=== PATIENT | female | born 1960 | race Caucasian/White ===

== ENCOUNTER 2019-06-08 18:12 | Emergency (ER) | payer BC, SELFPAY ==
[2019-06-08 18:22] VITALS: BP 117/79; PULSE 89; RESP 16; TEMP 36.4; O2SAT 98
--- NOTE | 2019-06-08 19:34 | PC.NURSE ---
pt reports lower back pain starting two days ago. She initially thought it was related to staying in bed due to head cold symptoms. Her head cold symptoms have mostly resolved but now her back is getting worse. She came in in a wheel chair and reports having difficulty walking due to pain.
[2019-06-08 19:37] VITALS: BP 125/65; PULSE 86; RESP 20; O2SAT 98
--- NOTE | 2019-06-08 19:55 | ED_ITS ---
HPI - Back Pain/Injury General Chief Complaint: Back Pain/Injury Stated Complaint: PAIN IN THE BACK TOWARDS FRONT OF STOMACH Time Seen by Provider: 06/08/19 19:55 Source: patient and family Mode of arrival: Ambulatory Limitations: no limitations History of Present Illness HPI Narrative: 59-year-old female here for evaluation approximately 24 hours of lower back pain and lower abdominal pain. She is unsure whether it is abdominal pain radiating to her back or back pain radiating to her abdomen or 2 separate symptoms. No change in stool habits no urinary symptoms. No vomiting. Does seem to be worse with movement but not with palpation. Has tried ibuprofen for symptoms at home without any improvement. Has had some chills and upper respiratory symptoms over the past couple days. Related Data Home Medications Medication Instructions Recorded Confirmed omeprazole 40 mg PO QDAY #0 10/01/11 fluoxetine 20 mg PO #0 10/04/11 losartan [Cozaar] 25 mg PO #0 10/04/11 cetirizine 10 mg PO QDAYP PRN #0 tab 05/31/16 duloxetine 20 mg PO QDAY #0 cap 05/31/16 fluticasone propionate [Flonase 1 spray INTRANASAL QDAYP PRN #0 05/31/16 Allergy Relief] Previous Rx's Medication Instructions Recorded codeine-guaifenesin 5 ml PO QHS #60 ml 06/21/17 doxycycline monohydrate 100 mg PO BID #20 cap 06/21/17 prednisone 40 mg PO QDAY #14 tab 06/21/17 codeine-guaifenesin 5 ml PO Q4HP PRN #100 ml 07/12/17 doxycycline hyclate 100 mg PO Q12H #20 cap 07/12/17 prednisone 20 mg PO Q DAY #8 tab 07/12/17 Allergies Allergy/AdvReac Type Severity Reaction Status Date / Time erythromycin base Allergy Unknown Verified 06/08/19 18:25 Penicillins Allergy Unknown Verified 06/08/19 18:25 phenobarbital Allergy Unknown Verified 06/08/19 18:25 Review of Systems Constitutional Constitutional: Reports body ache(s), Reports fatigue, Reports fever(s) and Denies headache(s) ENT Ears, Nose, Mouth, and Throat: Denies vertigo, Denies dizziness and Denies headache(s) Cardiovascular Cardiovascular: Denies chest pain and Denies dyspnea Respiratory Respiratory: Denies dyspnea Gastrointestinal Gastrointestinal: Reports abdominal pain, Denies change in stool character, Reports nausea and Denies vomiting Genitourinary Genitourinary: Denies dysuria and Denies vaginal discharge Musculoskeletal Musculoskeletal: Reports back pain Integumentary/Breasts Skin/Breast: Denies lesions and Denies rash Neurologic Neurologic: Denies behavioral changes, Denies confusion, Denies vertigo, Denies dizziness and Denies headache(s) Psychiatric Psychiatric: Denies behavioral changes and Denies confusion Endocrine Endocrine: Reports fatigue Hematologic/Lymphatic Hematologic/Lymphatic: Denies easy bleeding and Denies easy bruising [facility] Medical History Asthma (Inactive) Hypertension (Acute) Social History Smoking Status: Current every day smoker Social History Smoking Status: Current every day smoker Exam Initial Vital Signs Initial Vital Signs: Vital Signs Temperature 97.6 F 06/08/19 18:22 Pulse Rate 89 06/08/19 18:22 Respiratory Rate 16 06/08/19 18:22 Blood Pressure 117/79 06/08/19 18:22 Pulse Oximetry 98 06/08/19 18:22 Const General: cooperative, comfortable, well developed and well groomed Orientation: alert, awake and oriented x3 HENMT Head: normal to inspection and normocephalic Resp Effort & Inspection: normal respiratory effort Auscultation: clear to auscultation bilaterally Cardio Rate: regular rate Rhythm: regular rhythm GI Inspection: non-distended Palpation: soft, No firm and No tender Back/Spine/Pelvis Back: No CVA tenderness Thoracic/Lumbar Spine: No thoracic spinal tenderness and No lumbar spinal tenderness Skin Lesions: no lesions Rashes: no rashes Neuro General: alert, awake and oriented x3 Cognition: normal cognition Speech: speech normal Extrem General: normal to inspection and capillary refill normal Psych Appearance: grossly normal and well kempt Course Orders Ordered: ED Orders 06/08/19 20:12 CT abdomen pelvis w con Stat 06/08/19 20:35 Complete Blood Count AUTO DIFF Stat Comprehensive Metabolic Panel Stat Lipase Stat 06/08/19 22:48 Urine Microscopic Stat Discontinued Medications Sodium Chloride (Normal Saline 0.9%) 1,000 mls @ 1,000 mls/hr IV BOLUS ONE Stop: 06/08/19 21:10 Last Infusion: 06/08/19 22:57 Dose: 0 mls/hr Documented by: Admin: 06/08/19 20:41 Dose: 1,000 mls/hr Documented by: CIRILO Ketorolac Tromethamine (Toradol) 30 mg IV NOW ONE Stop: 06/08/19 20:12 Last Admin: 06/08/19 20:41 Dose: 30 mg Documented by: CIRILO Morphine Sulfate (Morphine) 4 mg IV NOW ONE Stop: 06/08/19 21:35 Last Admin: 06/08/19 21:50 Dose: 4 mg Documented by: CIRILO Vital Signs Vital signs: Vital Signs - 8 hr 06/08/19 18:22 06/08/19 19:37 06/08/19 20:00 Temperature 97.6 F Pulse Rate 89 86 95 H Respiratory Rate 16 20 17 Blood Pressure 117/79 Blood Pressure [Left Arm] 125/65 135/97 H Pulse Oximetry 98 98 98 06/08/19 21:33 06/08/19 23:19 Temperature Pulse Rate 88 75 Respiratory Rate 18 17 Blood Pressure Blood Pressure [Left Arm] 152/62 H 121/77 Pulse Oximetry 99 97 MDM - Back Pain/Injury Lab Data Attestation: I reviewed the patient's lab results. Result diagrams: 06/08/19 20:35 06/08/19 20:35 Labs: Lab Results 06/08/19 06/08/19 06/08/19 Range/Units 20:35 20:35 22:48 WBC 7.4 (4.5-11.0) X10^3/uL RBC 4.42 (4.0-5.2) X10^6/uL Hgb 14.0 (12.0-16.0) g/dL Hct 41.6 (36-46) % MCV 94.0 (80-100) fL MCH 31.6 (26-34) PG MCHC 33.6 (30-36) % RDW 13.4 (11.6-14.8) % Plt Count 257 (150-400) X10^3/uL Neut % (Auto) 59.7 (50-75) % Lymph % (Auto) 27.6 (25-40) % [place] % (Auto) 10.4 (3-14) % Eos % (Auto) 1.7 L (2-4) % Baso % (Auto) 0.6 (0-2) % Neut # (Auto) 4400 (6894-7383) /uL Lymph # (Auto) 2000 (2383-5804) /uL [place] # (Auto) 800 (0-900) /uL Eos # (Auto) 100 (0-450) /uL Baso # (Auto) 0 (0-100) /uL Sodium 140 (137-145) mmol/L Potassium 4.0 (3.4-5.1) mmol/L Chloride 105 (98-107) mmol/L Carbon Dioxide 30 (22-32) mmol/L BUN 14 (7-17) mg/dL Creatinine 0.60 (0.52-1.04) mg/dL Estimated GFR > 60.0 (>60) mL/min BUN/Creatinine Ratio 23.3 H (6-22) Glucose 128 H (80-110) mg/dL Calcium 9.2 (8.4-10.2) mg/dL Total Bilirubin 0.3 (0.2-1.3) mg/dL AST 95 H (14-36) IU/L ALT 106 H (9-52) IU/L Alkaline Phosphatase 130 H (38-126) U/L Total Protein 7.2 (6.3-8.2) g/dL Albumin 4.1 (3.5-5.0) g/dL Globulin 3.1 (1.7-4.1) g/dL Albumin/Globulin Ratio 1.3 (1.0-2.8) Lipase 49 (23-300) U/L Urine RBC 0-1/hpf (0-5/HPF) Urine WBC None seen (0-5/HPF) Ur Squamous Epith Cells 1-5 /hpf (0-5/HPF) Urine Bacteria Few (2-10) H (None) Ur Culture Indicated? Cult not indicated Urine Dip Bedside Urine Glucose Negative Bedside Urine Bilirubin - Negative Bedside Urine Ketone - Negative Urine Specific [place] 1.005 Bedside Urine Occult Blood - Negative Bedside Urine pH 5 Bedside Urine Protein + 30 Bedside Urine Urobilinogen +/- 1mg Bedside Urine Nitrite - Negative Bedside Urine Leukocytes +/- [address] scan - abdomen: Radiologist's impression: [address] [address] [address] Scan Report Signed Patient: Kathryn Davis BMR#: [id number] : 9Acct:[id number] Age/Sex: 59 / FDate of Service: 06/08/19 Loc: ED Accession Number: [id number] Procedure: CT abdomen pelvis w con Ordering Provider: Matheus Kilgore D.O. PROCEDURE: CT ABDOMEN PELVIS W CON INDICATIONS: Generalized abdominal pain TECHNIQUE: After the administration of intravenous contrast, 5 mm thick sections acquired from the diaphragm to the symphysis. 5 mm coronal and sagittal reformats were acquired. For radiation dose reduction, the following was used: automated exposure control, adjustment of mA and/or kV according to patient size. COMPARISON: [facility], CT, CT CHEST WO CON, 07/01/2016, 13:47. FINDINGS: Image quality: Excellent. ABDOMEN: Lung bases: There is mild scarring redemonstrated in the lung bases. Heart size is normal. There is a small hyper hernia. Solid organs: Evaluation of the liver demonstrates no focal hepatic lesions. The gallbladder appears within normal limits without calcified gallstones. Biliary system is non-dilated. Pancreas enhances normally. No peripancreatic fat stranding or fluid collections. No pancreatic duct dilatation. The spleen is normal in size. No adrenal nodules. Kidneys demonstrate no hydronephrosis. There is mild nonspecific perinephric stranding laterally. There is symmetric renal enhancement without perinephric fluid collections. Peritoneum and bowel: Bowel loops demonstrate normal wall thickness and caliber. The appendix is normal in appearance. There is colonic diverticulosis without acute diverticulitis. No free fluid or air. Nodes and vessels: No retroperitoneal or mesenteric adenopathy by size criteria. Aorta and inferior vena cava are normal in size. Miscellaneous: No ventral hernias. PELVIS: Genitourinary: Bladder wall thickness is normal. Miscellaneous: No inguinal hernias or adenopathy. Bones: No suspicious bony lesions. No vertebral body compression fractures. IMPRESSION: 1. No definite acute intra-abdominal abnormality. Specifically no evidence of appendicitis. 2. Colonic diverticulosis without acute diverticulitis. 3. Mild nonspecific perinephric stranding bilaterally without hydronephrosis. No other definite imaging evidence of pyelonephritis. Recommend correlation clinically. Dictated by: Torey Capellan M.D. on 06/08/2019 at 21:47 Approved by: Torey Capellan M.D. on 06/08/2019 at 21:52 [facility] Narrative Medical decision making narrative: Patient's CT scan shows no acute pathology. Rest of her labs also denies given exact etiology for symptoms. I do suspect that it is musculoskeletal. Did discuss this with the patient. She will continue with Tylenol and ibuprofen. No indication for antibiotics. I did discuss that she the patient her who is at bedside. She was given return precautions and follow-up instructions. She expressed understanding and agreement with plan. Discharge Plan Departure Patient Disposition: Home Clinical Impression: Lumbar back pain Abdominal pain Qualifiers: Abdominal location: lower abdomen, unspecified Qualified Code(s): R10.30 - Lower abdominal pain, unspecified Discharge Date/Time: 06/08/19 23:27 Instructions: DI for Low Back Pain, DI for Muscle Strain Activity Restrictions/Additional Instructions: Recommend that you keep hydrated. You can take Tylenol and/or ibuprofen for any body aches were discomfort. Return to the emergency department for any new or worsening symptoms Prescriptions: No Action omeprazole 40 MG capsule,delayed release(DR/EC) 40 mg PO QDAY Qty: 0 RF: 0 fluoxetine 20 MG capsule 20 mg PO Qty: 0 RF: 0 losartan [Cozaar] 25 MG tablet 25 mg PO Qty: 0 RF: 0 cetirizine 10 MG tablet 10 mg PO QDAYP PRNQty: 0 RF: 0 fluticasone propionate [Flonase Allergy Relief] 9.9 ML spray,suspension 1 spray Intranasal QDAYP PRNQty: 0 RF: 0 duloxetine 20 MG capsule,delayed release(DR/EC) 20 mg PO QDAY Qty: 0 RF: 0 prednisone 20 MG tablet 40 mg PO QDAY Qty: 14 RF: 0 doxycycline monohydrate 100 MG capsule 100 mg PO BID Qty: 20 RF: 0 codeine-guaifenesin 100 MG/10 MG liquid 5 ml PO QHS Qty: 60 RF: 0 doxycycline hyclate 100 MG capsule 100 mg PO Q12H Qty: 20 RF: 0 prednisone 20 MG tablet 20 mg PO Q DAY Qty: 8 RF: 0 codeine-guaifenesin 100 MG/10 MG liquid 5 ml PO Q4HP PRNQty: 100 RF: 0
[2019-06-08 20:00] VITALS: BP 135/97; PULSE 95; RESP 17; O2SAT 98
--- NOTE | 2019-06-08 20:12 | DI.CT.S_ITS ---
PROCEDURE: CT ABDOMEN PELVIS W CON INDICATIONS: Generalized abdominal pain TECHNIQUE: After the administration of intravenous contrast, 5 mm thick sections acquired from the diaphragm to the symphysis. 5 mm coronal and sagittal reformats were acquired. For radiation dose reduction, the following was used: automated exposure control, adjustment of mA and/or kV according to patient size. COMPARISON: [facility], CT, CT CHEST WO CON, 07/01/2016, 13:47. FINDINGS: Image quality: Excellent. ABDOMEN: Lung bases: There is mild scarring redemonstrated in the lung bases. Heart size is normal. There is a small hyper hernia. Solid organs: Evaluation of the liver demonstrates no focal hepatic lesions. The gallbladder appears within normal limits without calcified gallstones. Biliary system is non-dilated. Pancreas enhances normally. No peripancreatic fat stranding or fluid collections. No pancreatic duct dilatation. The spleen is normal in size. No adrenal nodules. Kidneys demonstrate no hydronephrosis. There is mild nonspecific perinephric stranding laterally. There is symmetric renal enhancement without perinephric fluid collections. Peritoneum and bowel: Bowel loops demonstrate normal wall thickness and caliber. The appendix is normal in appearance. There is colonic diverticulosis without acute diverticulitis. No free fluid or air. Nodes and vessels: No retroperitoneal or mesenteric adenopathy by size criteria. Aorta and inferior vena cava are normal in size. Miscellaneous: No ventral hernias. PELVIS: Genitourinary: Bladder wall thickness is normal. Miscellaneous: No inguinal hernias or adenopathy. Bones: No suspicious bony lesions. No vertebral body compression fractures. IMPRESSION: 1. No definite acute intra-abdominal abnormality. Specifically no evidence of appendicitis. 2. Colonic diverticulosis without acute diverticulitis. 3. Mild nonspecific perinephric stranding bilaterally without hydronephrosis. No other definite imaging evidence of pyelonephritis. Recommend correlation clinically. Dictated by: Torey Capellan M.D. on 06/08/2019 at 21:47 Approved by: Torey Capellan M.D. on 06/08/2019 at 21:52
[2019-06-08] MEDS: SODIUM CHLORIDE 0.9% 1,000 ML 1000 ML IV (20:41)
[2019-06-08] MEDS: KETOROLAC 60 MG/2 ML VIAL 30 MG IV (20:41)
[2019-06-08 20:46] LABS: Add Manual Diff / Slide Review NO; Basophils Absolute Auto 0 /uL (0-100); Basophils Percent Auto 0.6 % (0-2); Eosinophils Absolute Auto 100 /uL (0-450); Eosinophils Percent Auto 1.7 % (2-4); Hematocrit 41.6 % (36-46); Lymphocytes Absolute Auto 2000 /uL (1100-4500); Lymphocytes Percent Auto 27.6 % (25-40); Mean Corpuscular HGB Conc 33.6 % (30-36); Mean Corpuscular Hemoglobin 31.6 PG (26-34); Monocytes Absolute Auto 800 /uL (0-900); Monocytes Percent Auto 10.4 % (3-14); Neutrophils Absolute Auto 4400 /uL (1500-7000); Neutrophils Percent Auto 59.7 % (50-75); Platelet Count 257 X10^3/uL (150-400); Red Blood Cell Count 4.42 X10^6/uL (4.0-5.2); Red Cell Distribution Width 13.4 % (11.6-14.8); White Blood Cell Count 7.4 X10^3/uL (4.5-11.0)
[2019-06-08 20:56] LABS: Alanine Aminotransferase 106 IU/L (9-52); Albumin 4.1 g/dL (3.5-5.0); Albumin Globulin Ratio 1.3 (1.0-2.8); Alkaline Phosphatase 130 U/L (38-126); Aspartate Aminotransferase 95 IU/L (14-36); BUN Creatinine Ratio 23.3 (6-22); Bilirubin Total 0.3 mg/dL (0.2-1.3); Blood Urea Nitrogen 14 mg/dL (7-17); Calcium 9.2 mg/dL (8.4-10.2); Carbon Dioxide 30 mmol/L (22-32); Chloride 105 mmol/L (98-107); Estimated Glomerular Filt Rate > 60.0 mL/min (>60); Globulin 3.1 g/dL (1.7-4.1); Glucose 128 mg/dL (80-110); HEMOLYSIS < 15 (0-50); Lipase 49 U/L (23-300); Sodium 140 mmol/L (137-145); Total Protein 7.2 g/dL (6.3-8.2)
[2019-06-08 21:33] VITALS: BP 152/62; PULSE 88; RESP 18; O2SAT 99
[2019-06-08] MEDS: MORPHINE 4 MG/ML INJ IV (21:50)
[2019-06-08 22:49] LABS: WBC Urine None Seen (0-5/HPF)
[2019-06-08 23:00] LABS: Bacteria Urine Few (2-10); RBC Urine 0-1/HPF (0-5/HPF); Squamous Epithelial Cell Urine 1-5 /HPF (0-5/HPF)
[2019-06-08 23:01] LABS: Culture Indicated Urine Cult Not Indicated
[2019-06-08 23:19] VITALS: BP 121/77; PULSE 75; RESP 17; O2SAT 97
== END 2019-06-08 23:27 | disposition home or self-care (01) ==
PROVIDERS: Emergency Provider Emergency Medicine
DX: M54.5 Low back pain (principal); R10.30 Lower abdominal pain, unspecified
CPT/HCPCS: 36415; 74177; 80053; 81003; 81015; 83690; 85025; 96361; 96374; 96375; 99283; 99285; J1885; J2270; Q9967

== ENCOUNTER → 2021-08-24 14:28 | Outpatient (CLI) | payer BC, SELFPAY ==
[2021-08-24 16:16] LABS: COVID19 -Nasal RAPID Negative (Negative)
== END ==
PROVIDERS: Visit Provider Physician Assistant
DX: Z20.822 Contact with and (suspected) exposure to COVID-19 (principal)
CPT/HCPCS: 87635

== ENCOUNTER 2021-08-25 10:12 | Day surgery (SDC) | payer BC, SELFPAY ==
--- NOTE | 2021-08-25 | PATH_ITS ---
[facility] Accession Number: [id number] . 01 Material submitted: . PART A: gastrointestinal site - ANTRUM BIOPSY PART B: gastrointestinal site - ANTRUM BODY BIOPSY . 02 Diagnosis: A. Antrum, Biopsy: Gastric antral mucosa with mild chronic inflammation. Negative for Helicobacter organisms by immunohistochemistry. Negative for intestinal metaplasia. Negative for dysplasia or malignancy. . B. Antrum, Body, Biopsy: Portions of gastric body-type mucosa with mild chronic inflammation. Negative for Helicobacter organisms by immunohistochemistry. Negative for intestinal metaplasia. Negative for dysplasia or malignancy. MRV 09/02/2021 1452 Local . 02 Electronically signed: . Ashanti Givens MD, Pathologist NPI- [id number] . 01 Gross description: . Part A: ANTRUM BIOPSY: Received in formalin is 1 fragment(s) of yen, soft tissue measuring 0.1 x 0.1 x 0.1 cm submitted entirely in 1 cassette(s) Part B: ANTRUM BODY BIOPSY: Received in formalin are 2 fragment(s) of yen, soft tissue measuring 0.1 x 0.1 x 0.1 cm to 0.2 x 0.2 x 0.2 cm submitted entirely in 1 cassette(s) /LENORA 08/26/2021 1856 Local . 02 Microscopic: . A. An immunohistochemical stain was performed to evaluate for Helicobacter organisms and is negative for Helicobacter organisms by immunohistochemistry studies. The control stain showed appropriate reactivity. . B. An immunohistochemical stain was performed to evaluate for Helicobacter organisms and is negative for Helicobacter organisms by immunohistochemistry studies. The control stain showed appropriate reactivity. . * This test was developed and its performance characteristics determined by [facility]. It has not been cleared or approved by the U.S. Food and Drug Administration. The FDA has determined that such clearance or approval is not necessary. This test is used for clinical purposes. It should not be regarded as investigational or for research. . 02 Pathologist provided ICD-10: K29.70 . 02 CPT . 725574, 020665, [id number] Performed at: 01 [facility] [address] [id number] MD Torey James MD Phone: [phone] Performed at: 02 [facility] [id number] [place] [id number] MD Ml Morillo MD Phone: [phone]
[2021-08-25 10:35] VITALS: BP 123/81; PULSE 79; RESP 18; TEMP 36.5; O2SAT 96; BMI 35.6
[2021-08-25] MEDS: SODIUM CHLORIDE 0.9% 1,000 ML 84 ML IV (10:50)
--- NOTE | 2021-08-25 11:08 | PM.HP.1 ---
History of Present Illness History of Present Illness Date Patient Seen: 08/25/21 Time Patient Seen: 11:08 Chief complaint: EGD W/POSS BX Narrative: I reviewed Dr. Buitrago's note. No significant changes. Patient History Medical History Asthma Cervical vertebral fusion Cervical vertebral fusion Chronic pain Cyst of right breast Dermoid cyst of both ovaries GERD (gastroesophageal reflux disease) HTN (hypertension) IBS (irritable bowel syndrome) Surgical History History of tonsillectomy Family & Social History Social History: household members spouse Tobacco & Substance use: Smoking Status Current every day smoker alcohol intake current alcohol intake frequency 0-2 drinks per day Substance Use Type prescription drug Meds Home Medications and Allergies Home Medications Medication Instructions Recorded Confirmed Type albuterol sulfate 90 mcg/actuation 2 inh INHALATION PRN PRN 08/24/21 08/25/21 History aerosol inhaler cholecalciferol (vitamin D3) 50 2,000 unit PO DAILY 08/24/21 08/25/21 History mcg (2,000 unit) capsule (Vitamin D3) cyclobenzaprine 10 mg tablet 10 mg PO BEDTIME 08/24/21 08/25/21 History duloxetine 30 mg capsule,delayed 30 mg PO QPM 08/24/21 08/25/21 History release duloxetine 60 mg capsule,delayed 60 mg PO QAM 08/24/21 08/25/21 History release fluticasone propionate 44 INHALATION 08/24/21 History mcg/actuation HFA aerosol inhaler (Flovent HFA) losartan 50 mg tablet 50 mg PO DAILY 08/24/21 08/25/21 History omeprazole 40 mg PO DAILY 08/24/21 08/25/21 History oxycodone-acetaminophen 5 mg-325 1 tab PO DAILY 08/24/21 08/25/21 History mg tablet (Percocet) Allergies Allergy/AdvReac Type Severity Reaction Status Date / Time erythromycin base AdvReac Abdominal Verified 08/25/21 10:31 Pain gabapentin AdvReac Chest Pain Verified 08/25/21 10:54 Penicillins AdvReac Vomiting Verified 08/25/21 10:31 phenobarbital AdvReac Verified 08/25/21 10:31 Review of Systems Review of Systems ROS: Yes All systems reviewed with the patient and are negative except as otherwise documented Exam Vital Signs (past 8 hours): - 08/25/21 10:35 Temperature 97.7 F Pulse Rate 79 Respiratory Rate 18 Blood Pressure 123/81 Pulse Oximetry 96 Oxygen Delivery Method Room Air Const General: cooperative and comfortable Orientation: alert HENMT Head: normocephalic Ears: external ears normal Nose: external nose normal Face and sinus: normal facial exam Mouth: oral mucosae normal Eyes General: appearance normal, both eyes and all related structures Neck Neck: normal visual inspection Chest Chest: normal inspection of the chest Resp Effort & Inspection: normal respiratory effort Cardio Rate: regular rate GI Inspection: normal to inspection Skin General: no rashes or lesions noted and No jaundice Neuro General: patient alert and moves all extremities Cognition: normal cognition Speech: speech normal Extrem General: no pedal edema Psych Appearance: grossly normal Assessment & Plan Assessment & Plan narrative: 61-year-old female with right upper quadrant pain. EGD is pursued today. Time Spent With Patient Critical Care time: I spent a total of [] minutes of critical care time on this patient's care today; this time is exclusive of procedural time.
--- NOTE | 2021-08-25 11:10 | PM.PREOP ---
Pre-operative Note COVID-19 COVID-19 status: Negative Result date/Date tested (Pos, Neg/Pending): 08/24/21 Interval Note History & Physical reviewed/Exam performed by Physician: Yes Changes to H&P: No ASA Class (for procedural sedation): II
--- NOTE | 2021-08-25 12:08 | PM.OP.EGD ---
Operative Date/Time/Diagnoses Date of procedure: 08/25/21 Time of procedure: 12:08 Pre-op diagnosis: Right upper quadrant pain Post-op diagnosis: same Procedure & Clinicians Study performed: EGD with biopsies Same procedure as scheduled: Yes Indications: Right upper quadrant pain Surgeon: Tobin Carroll Procedure Notes SCOAP/Timeout: Done Procedure in detail: After the risks and benefits were explained, written and verbal informed consent was obtained. The patient was brought into the procedure room and placed into the left lateral decubitus position. Please see nurse marketing assistant manager notes for sedation details. scope was introduced into the mouth through the bite block and advanced under direct visualization to the 2nd portion of the duodenum. The scope was slowly withdrawn carefully examining the mucosa for any defects or lesions. Retroflexed views were accomplished in the stomach. The stomach was decompressed, the scope was then removed from the patient who tolerated the procedure well. Sedation minutes: 6 Complications: none Impression: 1. Duodenum: No significant mucosal abnormality appreciated from the bulb through the 2nd portion. The patient had a fairly angulated corner from D1 to D2. 2. Stomach: There was mild erythema in the antrum. No ulcers no outlet obstruction no mass lesions. Otherwise there was a subtly diffusely nodular gastropathy throughout the remainder of stomach. Biopsies were taken from the antrum and body and submitted separately for histopathologic analysis and also for exclusion of H pylori. 3. Esophagus: The squamocolumnar junction correlated with the top of the gastric folds. The GEJ was at approximately 42 cm from the incisors. No acute erosive changes no strictures no mass lesions. The esophagus was unremarkable. Post-procedure Plan for aftercare: 1. Await histopathology 2. If negative for H pylori or other concerning histologic features, surgical consultation for symptoms likely arising from a dysfunctional gallbladder would be appropriate. Disposition: PACU
[2021-08-25 12:11] VITALS: BP 140/77; PULSE 97; RESP 14; TEMP 36.3; O2SAT 97
[2021-08-25 12:17] VITALS: BP 136/76; PULSE 95; RESP 22; O2SAT 92
[2021-08-25 12:22] VITALS: BP 141/79; PULSE 80; RESP 13; O2SAT 93
[2021-08-25 12:37] VITALS: BP 144/81; PULSE 82; RESP 14; O2SAT 97
[2021-08-25 12:49] VITALS: BP 139/77; PULSE 86; RESP 14; TEMP 36.6; O2SAT 95
== END 2021-08-25 13:12 | disposition home or self-care (01) ==
PROVIDERS: PCP Internal Medicine Geriatric Medicine; Referring Provider Internal Medicine Gastroenterology; Visit Provider Internal Medicine Gastroenterology
PROC: 0DJ08ZZ Inspection of Upper Intestinal Tract, Via Natural or Artificial Opening Endoscopic (ICD-10-PCS; CPT 43235; principal; 2021-08-25 11:30)
DX: R10.11 Right upper quadrant pain (principal); I10 Essential (primary) hypertension; K21.9 Gastro-esophageal reflux disease without esophagitis; J45.909 Unspecified asthma, uncomplicated; K29.50 Unspecified chronic gastritis without bleeding
CPT/HCPCS: 43239; J2704

== ENCOUNTER → 2021-10-07 14:33 | Outpatient (CLI) | payer OTHER, SELFPAY ==
[2021-10-07 15:49] LABS: COVID19 -Nasal RAPID Negative (Negative)
== END ==
PROVIDERS: PCP Internal Medicine Geriatric Medicine; Visit Provider Surgery
DX: Z01.812 Encounter for preprocedural laboratory examination (principal); Z20.822 Contact with and (suspected) exposure to COVID-19
CPT/HCPCS: 87635

== ENCOUNTER 2021-10-09 12:16 | Day surgery (SDC) | payer BC, SELFPAY ==
[2021-10-08 08:32] VITALS: BMI 34.0
--- NOTE | 2021-10-08 14:31 | SUR.PREOP ---
10/[id number] w/ patient regurarding surgery tomorrow. Given preop instructions and informed of Time to arrive.
[2021-10-09] VITALS (8 sets, daily range): BP systolic 146–173; BP diastolic 60–95; PULSE 78–93; RESP 11–16; TEMP 36.1–36.7; O2SAT 91–98; BMI 34.0
--- NOTE | 2021-10-09 | PATH_ITS ---
[facility] Accession Number: [id number] . 01 Material submitted: . gallbladder - GALLBLADDER . 02 Diagnosis: Gallbladder, Cholecystectomy: Chronic cholecystitis. No calculi identified. Negative for dysplasia and malignancy. [facility] 10/14/2021 1355 Local . 02 Electronically signed: . Ml Morillo MD, Pathologist NPI- [id number] . 01 Gross description: . Received in formalin, labeled with the patient's name and gallbladder, is a 6.5 x 2.5 x 2.5 cm intact gallbladder, clip at cystic duct margin, margin inked blue. Cystic duct patent. No calculi identified within specimen or container. The mucosa is green, velvety, with yellow specks. Wall thickness up to 0.2 cm. Tax Accountant sections submitted. SUMMARY OF SECTIONS: A1. Gallbladder and cystic duct margin, five pieces. ([id number]) /FRR 10/10/2021 1620 Local . 02 Pathologist provided ICD-10: K81.1 . 02 CPT . 473011 Specimen Comment: A courtesy copy of this report has been sent to [phone] Performed at: 01 [facility] [address], [place], [place] [id number] MD Torey James MD Phone: [phone] Performed at: 02 [facility] [address] [place], [place] [id number] MD Ml Morillo MD Phone: [phone]
[2021-10-09] MEDS: ACETAMINOPHEN 325 MG TABLET 975 MG PO (13:07)
[2021-10-09] MEDS: LACTATED RINGERS 1,000 ML 42 ML IV (13:27)
--- NOTE | 2021-10-09 16:14 | PM.PREOP ---
Pre-operative Note COVID-19 COVID-19 status: Negative Result date/Date tested (Pos, Neg/Pending): 10/08/21 Criteria for continued procedure: Expected advancement of disease process and Possibility delay results in more complex future surgery or treatment Interval Note History & Physical reviewed/Exam performed by Physician: Yes Changes to H&P: No ASA Class (for procedural sedation): II
[2021-10-09] MEDS: ALBUTEROL 2.5 MG/3 ML NEB (ADULT) INH (16:41)
[2021-10-09] MEDS: CEFAZOLIN 2 GM/20 ML SYRINGE IV (17:12)
--- NOTE | 2021-10-09 17:23 | SUR.OPER ---
Supine on padded OR bed, head on pillow, arms secured on padded arm boards at <90 degrees abduction, legs uncrossed, safety belt at thigh, tape over blanket over lower legs.
[2021-10-09] MEDS: BUPIVACAINE 0.5% (PF) 30 ML, EPINEPHrine 0.15 MG INJ (17:31)
[2021-10-09] MEDS: LIDOCAINE 1% 20 ML INJ (17:32)
--- NOTE | 2021-10-09 18:09 | PM.OP.1 ---
Operative Date/Time/Diagnoses Date of procedure: 10/09/21 Time of procedure: 18:09 Pre-op diagnosis: Biliary colic Post-op diagnosis: same Procedure & Clinicians Procedure: Laparoscopic cholecystectomy Same procedure as scheduled: Yes Indications: Biliary colic Surgeon: Ba Sy Anesthesia Type: General Operative Notes Estimated Blood Loss (mL): 15 Procedure in detail: The patient was given preoperative antibiotic. The patient was brought to the operating room, placed on the table in the supine position. General endotracheal anesthesia was induced. The abdomen was prepped and draped. A time-out was performed. We made a 1 cm infraumbilical incision. We dissected down to the base of the umbilical stalk using cautery. We grasped the umbilical stalk with a Ford clamp to elevate the abdominal wall. We scored the fascia in the midline with cautery 1 cm. We pierced the peritoneum with a Peon clamp. The Shala port was placed and the abdomen was insufflated to 15 mmHg. A 10 mm 30 degree laparoscopic was inserted. There was no evidence of any injury from the entry. Next, we placed 5 mm ports in the subxiphoid position and right upper quadrant at the midclavicular line and anterior axillary line. Patient was then positioned in reverse Trendelenburg and the table was tilted to the left. The gallbladder was grasped at the dome and retracted cephalad. There were some adhesions of mesenteric tissue to the right liver which were carefully dissected with cautery to allow full retraction of the gallbladder. We then dissected the cystic structures with a combination of hook cautery and blunt dissection. We obtained a critical view. We placed hemoclips on the cystic duct and artery and divided the cystic duct and artery sharply between the clips. The gallbladder was then dissected off the liver and placed in a specimen retrieval bag. We irrigated the right upper quadrant and all the aspirate returned clear. We then removed the 5 mm ports under direct vision we removed the Shala port. We then injected some local into the fascia and closed the fascia with 2 interrupted 0 Vicryl sutures. The skin incisions were closed with 4 Monocryl and Steri-Strips were applied. Band-Aids were applied over the Steri-Strips. EBL: 10 mL Specimen: Gallbladder Post-operative Condition: stable Disposition: PACU
[2021-10-09] MEDS: OXYCODONE IR 5 MG TABLET PO (18:48)
== END 2021-10-09 19:40 | disposition home or self-care (01) ==
PROVIDERS: PCP Internal Medicine Geriatric Medicine; Referring Provider Surgery; Visit Provider Surgery
PROC: 0FT44ZZ Resection of Gallbladder, Percutaneous Endoscopic Approach (ICD-10-PCS; CPT 47562; principal; 2021-10-09 13:15)
DX: K81.1 Chronic cholecystitis (principal); F17.210 Nicotine dependence, cigarettes, uncomplicated; J45.909 Unspecified asthma, uncomplicated; K21.9 Gastro-esophageal reflux disease without esophagitis; I10 Essential (primary) hypertension
CPT/HCPCS: 47562; J0171; J0330; J0690; J1100; J1170; J1885; J2250; J2405; J2704; J3010; J7613

== ENCOUNTER → 2022-10-08 15:22 | Outpatient (CLI) | payer BC, OTHER, MEDICAID, SELFPAY ==
--- NOTE | 2022-10-13 08:36 | PM.PFT.1 ---
Pulmonary Function Test Referral & Results Date Patient Seen: 10/08/22 Requesting provider: Yesika Ty Results: The spirometry demonstrates an FVC of 1.85 L which is 57% of predicted. The FEV1 was measured at 1.03 L which is 41% of predicted. The FEV1/FVC ratio was 56 which is 72% of predicted. Following the administration of bronchodilator there was a 20% improvement in FEV1 and a 54% improvement in FEF 25-75%. Lung volumes show an SVC of 2.05 L which is 68% of predicted. The diffusing capacity was measured at 20.25 which is 83% of predicted. The maximum voluntary ventilation was severely reduced Interpretation: This study demonstrates severe obstructive lung disease with FEV1 just over 1 L. There is evidence of significant benefit after bronchodilator administration as above There is also moderate restrictive lung disease present based on reduction SVC Diffusing capacity is relatively preserved Clinical correlation suggested
== END ==
PROVIDERS: PCP Internal Medicine Geriatric Medicine; Referring Provider Internal Medicine Geriatric Medicine; Visit Provider Internal Medicine Geriatric Medicine
DX: R06.02 Shortness of breath (principal); J45.31 Mild persistent asthma with (acute) exacerbation; F17.210 Nicotine dependence, cigarettes, uncomplicated
CPT/HCPCS: 94060; 94726; 94729

== ENCOUNTER → 2022-11-08 15:57 | Outpatient (CLI) | payer BC, OTHER, MEDICAID, SELFPAY ==
[2022-11-08 16:33] LABS: Add Manual Diff / Slide Review NO; Basophils Absolute Auto 100 /uL (0-100); Basophils Percent Auto 0.8 % (0-2); Eosinophils Absolute Auto 100 /uL (0-450); Eosinophils Percent Auto 1.4 % (2-4); Hematocrit 36.4 % (36-46); Hemoglobin 12.2 g/dL (12.0-16.0); Lymphocytes Absolute Auto 2000 /uL (1100-4500); Lymphocytes Percent Auto 27.6 % (25-40); Mean Corpuscular HGB Conc 33.5 % (30-36); Mean Corpuscular Hemoglobin 30.9 PG (26-34); Monocytes Absolute Auto 600 /uL (0-900); Monocytes Percent Auto 8.3 % (3-14); Neutrophils Absolute Auto 4500 /uL (1500-7000); Neutrophils Percent Auto 61.9 % (50-75); Platelet Count 304 X10^3/uL (150-400); Red Blood Cell Count 3.96 X10^6/uL (4.0-5.2); Red Cell Distribution Width 13.8 % (11.6-14.8); White Blood Cell Count 7.3 X10^3/uL (4.5-11.0)
[2022-11-08 16:36] LABS: INR 1.1 (0.9-1.3); Prothrombin Time 12.3 SECONDS (10.1-12.7)
[2022-11-08 16:45] LABS: Alanine Aminotransferase 23 IU/L (<35); Albumin 4.3 g/dL (3.5-5.0); Albumin Globulin Ratio 1.5 (1.0-2.8); Alkaline Phosphatase 75 U/L (38-126); Aspartate Aminotransferase 23 IU/L (14-36); BUN Creatinine Ratio 21.2 (6-22); Bilirubin Total 0.2 mg/dL (0.2-1.3); Blood Urea Nitrogen 11 mg/dL (7-17); Carbon Dioxide 31 mmol/L (22-32); Chloride 101 mmol/L (98-107); Estimated Glomerular Filt Rate > 60 mL/min (>60); Globulin 2.8 g/dL (1.7-4.1); Glucose 105 mg/dL (80-110); HEMOLYSIS < 15 (0-50); Potassium 3.3 mmol/L (3.4-5.1); Sodium 139 mmol/L (137-145); Total Protein 7.1 g/dL (6.3-8.2)
[2022-11-08 17:01] LABS: Free T4, Direct Thyroxine 1.06 ng/dL (0.78-2.19)
[2022-11-08 17:15] LABS: Thyroid Stimulating Hormone 1.71 uIU/mL (0.47-4.68)
[2022-11-08 17:20] LABS: Ferritin 68 ng/mL (11-264)
[2022-11-11 05:50] LABS: Ceruloplasmin 24.9 mg/dL (19.0-39.0)
[2022-11-12 18:59] LABS: ANA Screen, IFA Negative (.)
[2022-11-14 11:25] LABS: Anti Mitochondrial ABY IGG <20.0 Units (0.0-20.0); Smooth Muscle Antibody 5 Units (0-19)
== END ==
PROVIDERS: PCP Internal Medicine Geriatric Medicine; Referring Provider Internal Medicine Geriatric Medicine; Visit Provider Internal Medicine Geriatric Medicine
DX: R79.89 Other specified abnormal findings of blood chemistry (principal); I10 Essential (primary) hypertension
CPT/HCPCS: 36415; 80053; 82390; 82525; 82728; 83516; 84439; 84443; 85025; 85610; 86038

== ENCOUNTER → 2023-10-19 12:37 | Outpatient (CLI) | payer BC, OTHER, MEDICAID, SELFPAY ==
--- NOTE | 2023-10-19 12:39 | DI.CT.S_ITS ---
PROCEDURE: CT LUNG LOW DOSE SCREENING INDICATIONS: Chronic obstructive pulmonary disease;current smok TECHNIQUE: Noncontrast 2.0-2.5 mm thick sections acquired from the pulmonary apices to the posterior costophrenic angles. 7 mm thick axial MIP, and 5 mm coronal and sagittal reformats were then acquired. For radiation dose reduction, the following was used: automated exposure control, adjustment of mA and/or kV according to patient size. COMPARISON: Located Within [facility], CT, CT CHEST WO CON, 07/01/2016, 13:47. Located Within [facility], CT, CT CHEST WITHOUT CONTRAST, 09/16/2022, 13:22. FINDINGS: Image quality: Diagnostic. Lower Neck: No enlarged lymph nodes. Thyroid: No thyroid nodules which require sonographic follow up, per consensus guidelines. Axillae: No enlarged lymph nodes. Chest Wall: Unremarkable. Bones: Unremarkable. Lungs and Pleura: No pneumothorax or pleural effusions. A 5 mm pulmonary nodule is unchanged at the medial right apex when compared with the CT dated July 01, 2016. Similarly, a 5 mm pulmonary nodule at the anterior left upper lobe is unchanged. Scattered 2 and 3 mm pulmonary nodules are present at the bilateral apices. No new suspicious pulmonary nodules or mass lesions which require follow-up. Heart: Heart size is normal. No pericardial effusion. Thoracic Vessels: The aorta and pulmonary arteries demonstrate normal size. Mediastinum and Nila: No enlarged lymph nodes. Esophagus: No wall thickening. No hiatal hernia. Upper Abdomen: Visualized upper abdomen solid organs and bowel loops appear normal. IMPRESSION: No suspicious pulmonary nodules. LUNG-RADS 1; continued annual screening, if eligible. Clinically Significant Non-pulmonary Findings: None. Dictated by: Barbara Arroyo M.D. on 10/19/2023 at 13:52 Approved by: Barbara Arroyo M.D. on 10/19/2023 at 14:01
== END ==
PROVIDERS: PCP Internal Medicine Geriatric Medicine; Referring Provider Internal Medicine Geriatric Medicine; Visit Provider Internal Medicine Geriatric Medicine
DX: J44.9 Chronic obstructive pulmonary disease, unspecified (principal); R91.8 Other nonspecific abnormal finding of lung field; Z12.2 Encounter for screening for malignant neoplasm of respiratory organs; F17.210 Nicotine dependence, cigarettes, uncomplicated
CPT/HCPCS: 71271

== ENCOUNTER → 2024-04-05 12:20 | Outpatient (CLI) | payer BC, SELFPAY ==
--- NOTE | 2024-04-05 12:22 | DI.MRI.S_ITS ---
PROCEDURE: MR LUMBAR SPINE WO CON INDICATIONS: Other intervertebral disc degeneration, lumbar reg TECHNIQUE: Noncontrast sagittal T1 spin echo and T2 fast echo, sagittal STIR, and T2 fast spin echo through the lumbar spine. In cases with scoliosis, additional coronal T2 fast spin echo may be performed. COMPARISON: None. FINDINGS: Image quality: Excellent. Alignment and Curvature: Minimal anterolisthesis of L2 on L3 and L3 on L4. Minimal retrolisthesis of L4 on L5. Bone Marrow: Marrow is of normal overall signal. Spine lipid rich osseous hemangioma within the L1 vertebral body. No acute vertebral body compression fractures. Spinal Cord: Conus medullaris terminates at the L1 level. Visualized cord demonstrates normal signal and size. Paraspinous Soft Tissues: No paravertebral masses. There is a foreign body that presses the skin and adjacent musculature of the lower back. T12-L1: No spinal canal stenosis or foraminal stenosis. There is bilateral facet arthropathy and ligamentum flavum hypertrophy. L1-L2: Dorsal disc bulge and ligamentum flavum hypertrophy mildly narrow the spinal canal. No neural foraminal stenosis. There is bilateral facet arthropathy. L2-L3: Dorsal disc bulge and ligamentum flavum hypertrophy result in [id number] spinal canal stenosis. Puro-wv-pafeortw bilateral foraminal stenosis. Bilateral facet arthropathy. L3-L4: Dorsal disc bulge and ligamentum flavum hypertrophy result in moderate spinal canal stenosis. Moderate bilateral foraminal stenosis. Bilateral facet arthropathy. L4-L5: Dorsal disc bulge and ligamentum flavum hypertrophy result in moderate spinal canal stenosis. Moderate bilateral foraminal stenosis. Bilateral facet arthropathy. L5-S1: No significant spinal canal stenosis. Moderate left foraminal stenosis. No foraminal stenosis on the right. Bilateral facet arthropathy. IMPRESSION: 1. Multilevel degenerative disc disease throughout the lumbar spine as described above. The worst level is at L4-L5 which demonstrates moderate spinal canal stenosis and moderate bilateral foraminal stenosis. 2. Minimal anterolisthesis of L2 on L3 and L3 on L4. Minimal retrolisthesis of L4 on L5. Dictated by: Rickey Neal M.D. on 04/06/2024 at 9:54 Approved by: Rickey Neal M.D. on 04/06/2024 at 10:16
== END ==
PROVIDERS: PCP Internal Medicine Geriatric Medicine; Referring Provider Physical Medicine & Rehabilitation; Visit Provider Physical Medicine & Rehabilitation
DX: M51.36 Other intervertebral disc degeneration, lumbar region (principal); M48.061 Spinal stenosis, lumbar region without neurogenic claudication; M48.07 Spinal stenosis, lumbosacral region; M47.816 Spondylosis without myelopathy or radiculopathy, lumbar region; M47.817 Spondylosis without myelopathy or radiculopathy, lumbosacral region
CPT/HCPCS: 72148

== ENCOUNTER → 2024-05-03 15:37 | Outpatient (CLI) | payer BC, SELFPAY ==
--- NOTE | 2024-05-03 15:39 | DI.RAD.S_ITS ---
PROCEDURE: XR DEXA AXIAL SKELETON INDICATIONS: POSTMENOPAUSAL,SCREENING FOR OSTEOPOROSIS COMPARISON: None. FINDINGS: Lumbar Spine: Bone mineral density is 0.923 g/cm2, T score -1.1, osteopenia. Left Hip: Bone mineral density is 0.809 g/cm2, T score -1.1, osteopenia. Left Femoral Neck: Bone mineral density is 0.674 g/cm2, T score -1.6, osteopenia. Right Hip: Bone mineral density is 0.861 g/cm2, T score -0.7, normal. Right Femoral Neck: Bone mineral density is 0.758 g/cm2, T score -0.8, normal. Fracture Risk Calculation (when applicable): 10-year fracture risk of a major osteoporotic fracture 7 percent and of a hip fracture 0.7 percent. (T score greater or equal to -1.0 to: NORMAL) (T score from -1.1 to -2.4: OSTEOPENIA) (T score less than or equal to -2.5: OSTEOPOROSIS) IMPRESSION: Osteopenia Follow-up guidelines as follows: Osteoporosis: Consider a repeat DEXA and Vertebral Fracture Assessment (VFA) exam in 2 years or sooner if medically necessary, to reassess this patient's status. Osteopenia: Consider a repeat DEXA in 2-3 years to reassess this patient's status, or if there is a new clinical indication. Normal: Consider a repeat DEXA in 5 years or sooner, or if there is a new clinical indication. All treatment decisions require clinical judgment and consideration of individual patient factors, including patient preferences, comorbidities, previous drug use, risk factors not captured in the FRAX model (e.g., frailty, falls, vitamin D deficiency, increased bone turnover, interval significant decline in bone density ) and possible under- or over-estimation of fracture risk by FRAX. In addition, the NOF Guide recommends that FDA-approved medical therapies be considered in postmenopausal women and men age >= 50 years with a: * Hip or vertebral (clinical or morphometric) fracture * T-score of <=-2.5 at the spine or hip * Ten-year fracture probability by FRAX of >= 3% for hip fracture or >=20% for major osteoporotic fracture. People with diagnosed cases of osteoporosis or at high risk for fracture should have regular bone mineral density tests. For patients eligible for Medicare, routine testing is allowed once every 2 years. The testing frequency can be increased to one year for patients who have rapidly progressing disease, those who are receiving or discontinuing medical therapy to restore bone mass, or have additional risk factors. Dictated by: Matheus Reyes M.D. on 05/03/2024 at 16:30 Approved by: Matheus Reyes M.D. on 05/03/2024 at 16:33
== END ==
PROVIDERS: PCP Internal Medicine Geriatric Medicine; Referring Provider Internal Medicine Geriatric Medicine; Visit Provider Internal Medicine Geriatric Medicine
DX: Z13.820 Encounter for screening for osteoporosis (principal); M85.89 Other specified disorders of bone density and structure, multiple sites; Z78.0 Asymptomatic menopausal state
CPT/HCPCS: 77080

== ENCOUNTER → 2024-09-03 13:47 | Outpatient (CLI) | payer MEDICARE, OTHER, SELFPAY ==
--- NOTE | 2024-09-03 14:00 | DI.ECHO.S_ITS ---
[place] [facility]+ [facility] : : [id number] : [place] : : [phone] : : Phone: [phone] Echocardiogram Report + + :Name: ISELA GARNER Study Date: 09/03/2024 Height: 64 in : :[facility] ReadingLocation: Weight: 197 lb : : Gender: Female BSA: 1.9 m2 : :: 1960 Age: 64 yrs BP: 123/83 mmHg: :Reason For Study: AORTIC VALVE STENOSIS : :Ordering Physician: BHARTI MONTELONGO : : Performed By: Jonna Justice : :Referring: BHARTI MONTELONGO MD : + + Interpretation Summary The study quality was technically limited. The ejection fraction is estimated to be 60-65%. Diastolic parameters suggest probable normal left ventricular diastolic function and normal filling pressures. The right ventricle is normal in size and function. Pulmonary artery pressures cannot be estimated because of the lack of a measurable TR jet velocity. There is moderate aortic stenosis. The IVC is of normal diameter and collapses greater than 50% with a sniff. This suggests a low right atrial pressure of 3 mm Hg. Procedure: A two-dimensional transthoracic echocardiogram with color flow and Doppler was performed. The study quality was technically adequate. Comparison is made with the echocardiogram of 06/14/2023. The study quality was technically limited. The patient was in sinus rhythm with heart rates between 77-88 bpm during the exam. Left Ventricle: The left ventricle is normal in size and wall thickness. The ejection fraction is estimated to be 60-65%. There are no obvious focal wall motion abnormalities noted but poor endocardial definition reduces the sensitivity for the detection of such. Diastolic parameters suggest probable normal left ventricular diastolic function and normal filling pressures. Right Ventricle: The right ventricle is normal in size and function. Atria: The left atrial size is normal. Right atrial size is normal. There is no Doppler evidence for an interatrial shunt. Mitral Valve: There is a flat closure plane of the the mitral valve leaflets. There is trace mitral regurgitation. Aortic Valve: The aortic valve is not well visualized. A bicuspid aortic valve cannot be excluded. The peak aortic velocity is 2.9 m/sec. The aortic valve mean gradient is 20 mmHg. The calculated aortic valve area is 1.2 cm2. There is moderate aortic stenosis. No aortic regurgitation is present. Tricuspid Valve: The tricuspid valve leaflets are thin and pliable. There is mild tricuspid regurgitation. Pulmonary artery pressures cannot be estimated because of the lack of a measurable TR jet velocity. Pulmonic Valve: The pulmonic valve is not well seen, but is grossly normal. There is no pulmonic valvular regurgitation. Great Vessels: The aortic root is normal size. The dimensions of the ascending aorta are normal. The IVC is of normal diameter and collapses greater than 50% with a sniff. This suggests a low right atrial pressure of 3 mm Hg. Pericardium/ Pleura There is no pericardial effusion. There is no pleural effusion. MMode/2D Measurements & Calculations LVIDd: 4.2 cm LVOT diam: 2.1 cm LVIDs: 2.7 cm Ao root diam: 3.0 cm FS: 35.7 % asc Aorta Diam: 3.8 cm EPSS: 1.1 cm Ao Arch Diam (Prox Trans): 2.4 cm IVSd: 1.0 cm LVPWd: 0.93 cm LV arias. diameter/BSA (cm/m^2): 2.1 LV sys. diameter/BSA (cm/m^2): 1.4 LA A2 area: 15.5 cm2 RA long axis: 4.9 cm LA A4 area: 9.9 cm2 RA area: 12.4 cm2 LA length (vol): 4.7 cm RA vol: 26.7 ml LA vol: 28.0 ml RA : 13.7 ml/m2 LA vol index: 14.4 ml/m2 IVC diam: 1.8 cm RVD1 (basal): 3.1 cm RVD2 (mid): 2.3 cm TAPSE: 2.1 cm Doppler Measurements & Calculations Ao V2 max: 293.2 cm/sec LVOT Max Rakan: 95.2 cm/sec Ao V2 mean: 207.3 cm/sec LV V1 max P.6 mmHg Ao max P.4 mmHg LV V1 VTI: 19.6 cm Ao mean P.1 mmHg LYNETTE(I,D): 1.3 cm2 Ao V2 VTI: 55.6 cm LYNETTE(V,D): 1.2 cm2 sev ratio: 0.35 LYNETTE indexed to BSA (cm^2/m^2): 0.65 MV E max rakan: 69.8 cm/sec PA V2 max: 98.9 cm/sec MV A max rakan: 93.7 cm/sec PA V2 mean: 74.3 cm/sec MV E/A: 0.74 PA mean P.3 mmHg Med Peak E' Rakan: 5.4 cm/sec PA pr(Accel): 51.6 mmHg E/E' med: 13.0 Lat Peak E' Rakan: 6.5 cm/sec E/E' lat: 10.7 E/e' average: 11.8 MV dec time: 0.28 sec MVA(VTI): 3.2 cm2 MV V2 mean: 70.1 cm/sec SV(LVOT): 70.5 ml MV mean P.2 mmHg MV V2 VTI: 22.1 cm Reading Physician:JASMEET
== END ==
LOC: ECHO 13:52
PROVIDERS: PCP Internal Medicine Geriatric Medicine; Referring Provider Internal Medicine Cardiovascular Disease; Visit Provider Internal Medicine Cardiovascular Disease
DX: I08.2 Rheumatic disorders of both aortic and tricuspid valves
CPT/HCPCS: 93306

== ENCOUNTER → 2025-03-23 13:53 | Outpatient (CLI) | payer MEDICARE, OTHER, SELFPAY ==
--- NOTE | 2025-03-23 13:57 | DI.CT.S_ITS ---
PROCEDURE: CT LUNG LOW DOSE SCREENING INDICATIONS: SCREENING TECHNIQUE: Noncontrast 2.0-2.5 mm thick sections acquired from the pulmonary apices to the posterior costophrenic angles. 7 mm thick axial MIP, and 5 mm coronal and sagittal reformats were then acquired. For radiation dose reduction, the following was used: automated exposure control, adjustment of mA and/or kV according to patient size. COMPARISON: [facility], CT, CT LUNG LOW DOSE SCREENING, 10/19/2023, 12:53. FINDINGS: Image quality: Diagnostic. Lower Neck: No enlarged lymph nodes. Thyroid: No thyroid nodules which require sonographic follow up, per consensus guidelines. Axillae: No enlarged lymph nodes. Chest Wall: Unremarkable. Bones: Unremarkable. Lungs and Pleura: No pneumothorax or pleural effusions. Stable appearance of a 5 millimeter nodule in the right upper lobe medially. Micro nodules more laterally in the right upper lobe are also stable. Heart: Heart size is normal. No pericardial effusion. Thoracic Vessels: Borderline ectasia of the ascending aorta measuring 4 cm. Mediastinum and Nila: No enlarged lymph nodes. Esophagus: No wall thickening. No hiatal hernia. Upper Abdomen: Visualized upper abdomen solid organs and bowel loops appear normal. IMPRESSION: Stable appearance of sub 6 millimeter densities with no new focal lesion seen. LUNG-RADS 2; continued annual screening, if eligible. Clinically Significant Non-pulmonary Findings: None. Dictated by: Tay Salas M.D. on 03/24/2025 at 19:33 Approved by: Tay Salas M.D. on 03/24/2025 at 19:39
== END ==
PROVIDERS: PCP Internal Medicine Geriatric Medicine; Referring Provider Internal Medicine Geriatric Medicine; Visit Provider Internal Medicine Geriatric Medicine
DX: Z12.2 Encounter for screening for malignant neoplasm of respiratory organs (principal); Z87.891 Personal history of nicotine dependence
CPT/HCPCS: 71271